=== PATIENT | female | born 1990 | race Caucasian/White ===

== ENCOUNTER 2023-03-02 17:54 | Emergency (ER) | payer MEDICAID ==
[~2023-03-02] VITALS: Ht 165.1 cm; Wt 53.5 kg
[2023-03-02] MEDS ORDERED: ONDANSETRON HCL/PF 4 MG/2 ML VIAL IVP ONE (18:30)
[2023-03-02] MEDS ORDERED: diphenhydrAMINE HCL 50 MG/ML VIAL IV ONE (18:30)
[2023-03-02] MEDS ORDERED: IV NS 0.9% 1,000 ML BAG IV ONE (18:30)
[2023-03-02] MEDS ORDERED: diphenhydrAMINE HCL 50 MG/ML VIAL ONE (18:35)
[2023-03-02] MEDS ORDERED: ONDANSETRON HCL/PF 4 MG/2 ML VIAL ONE (18:35)
[2023-03-02] MEDS ORDERED: OFLO5DRO5 RIGHT EAR ×2 (20:18→22:32)
[2023-03-02 21:17] VITALS: BP 113/83; TEMP 98.1; O2SAT 99
== END 2023-03-02 22:33 | disposition home or self-care (01) ==
LOC: ER 17:59
DX: R42 Dizziness and giddiness (principal); H60.91 Unspecified otitis externa, right ear; Z60.2 Problems related to living alone
CPT/HCPCS: 99284; 96374; 96361; 96375; J1200; J2405; J7030